=== PATIENT | male | born 1990 | race Hispanic/Latino ===

== ENCOUNTER 2018-10-23 23:07 | Emergency (ER) | payer SELFPAY ==
[2018-10-23 23:21] VITALS: BP 149/97; RESP 20; TEMP 99.9; O2SAT 99
--- NOTE | 2018-10-23 23:38 | C.PDOC ---
History Of Present Illness 28-year-old male presents to the emergency department with complaints of dental pain in his right upper jaw. Patient states that he had a feeling which came out and he now has a partial tooth with nerve exposure to the area. Patient states that you supposed to see a dentist on Thursday10-25-18. Hey state they took Tylenol which did not provide relief. Patient denies facial swelling and fever. Time Seen by Provider: 10/23/18 23:30 Chief Complaint (Nursing): Dental Pain History Per: Patient History/Exam Limitations: no limitations Onset/Duration Of Symptoms: Days Current Symptoms Are (Timing): Still Present Quality: Positive for: "Pain" Past Medical History Reviewed: Historical Data, Nursing Documentation, Vital Signs Vital Signs: Last Vital Signs Temp 99.9 F H 10/23/18 23:16 Pulse Resp 20 10/23/18 23:16 BP 149/97 H 10/23/18 23:16 Pulse Ox 99 10/23/18 23:16 - Medical History PMH: No Chronic Diseases Surgical History: No Surg Hx Family History: States: No Known Family Hx - Social History Hx Alcohol Use: No Hx Substance Use: No Review Of Systems Constitutional: Negative for: Fever, Chills, Weakness Eyes: Negative for: Redness, Other (scleral icterus) ENT: Positive for: Mouth Pain (dental). Negative for: Mouth Swelling Cardiovascular: Negative for: Chest Pain Respiratory: Negative for: Cough, Shortness of Breath Gastrointestinal: Negative for: Nausea, Vomiting, Diarrhea Genitourinary: Negative for: Dysuria, Hematuria Musculoskeletal: Negative for: Back Pain Skin: Negative for: Rash Neurological: Negative for: Weakness, Numbness, Dizziness Physical Exam - Physical Exam Appears: Non-toxic, No Acute Distress Skin: Normal Color, Warm, Dry Head: Atraumatic, Normacephalic, No Swelling (facial) Eye(s): bilateral: Normal Inspection, PERRL, EOMI Teeth: Other (fragmented molar to the right upper jawline) Gingiva: No Swelling, No Bleeding, No Other (discharge) Neurological/Psych: Oriented x3, Normal Speech, Normal Cognition ED Course And Treatment O2 Sat by Pulse Oximetry: 99 (RA) Pulse Ox Interpretation: Normal Medical Decision Making Medical Decision Making: Plan: Motrin 800mg PO Ultram 50mg PO patient does not appear to have a dental infection at this time. Disposition Counseled Patient/Family Regarding: Diagnosis, Need For Followup, Rx Given - Disposition Disposition: HOME/ ROUTINE Disposition Time: 23:38 Condition: STABLE Prescriptions: Ibuprofen [Motrin Tab] 800 mg PO TID PRN #21 tab PRN Reason: Pain, Moderate (4-7) traMADol [Ultram] 50 mg PO TID PRN #15 tab PRN Reason: Pain, Severe (8-10) Instructions: Dental Pain (DC) Forms: [employer] (T[place]isian), General Discharge Instructions - Clinical Impression Clinical Impression: Pain, dental - PA / PEDIATRIC MEDICAL ASSISTANT / Resident Statement MD/DO has reviewed & agrees with the documentation as recorded. - Scribe Statement The provider has reviewed the documentation as recorded by the Scribe (Nikhil Agee) All medical record entries made by the Scribe were at my direction and personally dictated by me. I have reviewed the chart and agree that the record accurately reflects my personal performance of the history, physical exam, medical decision making, and the department course for this patient. I have also personally directed, reviewed, and agree with the discharge instructions and disposition.
== END 2018-10-24 00:06 | disposition home or self-care (01) ==
LOC: C.ER 23:07
DX: K08.89 Other specified disorders of teeth and supporting structures (principal)